=== PATIENT | male | born 1990 | race Caucasian/White ===

== ENCOUNTER 2024-05-07 15:28 | Inpatient (IN) | payer BC, MEDICAID, SELFPAY ==
[2024-05-07 15:55] VITALS: BP 121/80; PULSE 84; RESP 16; TEMP 37.1; O2SAT 97
[2024-05-07] MEDS: hyDROXYzine 25 mg Capsule 50 MG PO (16:11)
[2024-05-07] MEDS: nicotine 21 mg Patch 1 PATCH TRANSDERMA (16:11)
[2024-05-07 16:17] VITALS: BMI 32.6
[2024-05-07 20:42] VITALS: BP 96/58; PULSE 88; RESP 18; TEMP 36.7; O2SAT 96
[2024-05-07] MEDS: trazodone 50 mg Tablet PO (21:52)
[2024-05-07] MEDS: prazosin 1 mg Capsule 2 MG PO (21:52)
[2024-05-08 06:00] VITALS: BP 106/70; PULSE 78; RESP 16; TEMP 36.5; O2SAT 97
[2024-05-08] MEDS: fluoxetine 20 mg Capsule 40 MG PO (08:05)
[2024-05-08] MEDS: hyDROXYzine 25 mg Capsule 50 MG PO ×2 (08:25→21:44)
--- NOTE | 2024-05-08 09:47 | PC.NURSE ---
PT DENIES SI/HI AND AVH AT THIS TIME. STATES HE HAD DIFFICULTY GOING TO SLEEP LAST NIGHT. PT DENIES PAIN. RATES ANXIETY 8/10 VISTARIL 50 MG GIVEN FOR INCREASED ANXIETY. PT RATES DEPRESSION 8/10. PT IS COOPERATIVE. ALL QUESTIONS ASWERED AND SUPPORT VOICED.
[2024-05-08] MEDS: nicotine 21 mg Patch 1 PATCH TRANSDERMA (12:08)
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
[2024-05-08 14:00] VITALS: BP 113/79; PULSE 102; RESP 18; TEMP 36.4; O2SAT 95
--- NOTE | 2024-05-08 17:59 | PC.NURSE ---
PT RECEIVED VISTARIL 50 MG THIS AM FOR REPORTS OF INCREASED ANXIETY. MEDICATION DEEMED EFFECTIVE. PT HAS RESTED THROUGHOUT THE SHIFT AND HAS HAD NO OTHER COMPLAINTS OF PAIN. SUPPORT VOICED.
[2024-05-08 21:08] VITALS: BP 117/69; PULSE 93; RESP 18; TEMP 36.9; O2SAT 96
[2024-05-08] MEDS: prazosin 1 mg Capsule 2 MG PO (21:44)
[2024-05-09] MEDS: trazodone 50 mg Tablet PO ×2 (00:18→21:01)
[2024-05-09] MEDS: ibuprofen 600 mg Tablet PO ×2 (00:19→21:01)
[2024-05-09 06:00] VITALS: BP 95/55; PULSE 88; RESP 16; O2SAT 96
[2024-05-09] MEDS: nicotine 21 mg Patch 1 PATCH TRANSDERMA (08:41)
[2024-05-09] MEDS: fluoxetine 20 mg Capsule 40 MG PO (08:41)
[2024-05-09 14:00] VITALS: BP 123/79; PULSE 101; RESP 17; TEMP 36.6; O2SAT 96
--- NOTE | 2024-05-09 16:22 | P.NPUPN_ITS ---
Subjective NPU Subjective: 34-year-old male history of severe depression along with a history of methamphetamine dependence and alcohol dependence currently in remission. Patient had endorsed recent homelessness. He had reported continuing to struggle with depression. He had reported low energy and low motivation. He had stated that he was continuing to think about an extended inpatient substance abuse facility as he stated that being homeless had put him at substantial risk of relapsing off of alcohol and methamphetamine. He had reported sadness at the potential of not being able to have his children return to his home as department of family services had removed children from home due to the patient's substance abuse approximately 1 year ago. He had reported frequent nightmares and flashbacks. He had reported considerable problems with managing anxiety and worry. He had reported that he had been taking Prozac for weeks with no improvement noted at 40mg daily on an outpatient basis. Mental Status Exam MSE Comments: Patient is a casually dressed white male slightly overweight who was alert and oriented to person place time and situation. His gait was within normal limits. His hygiene was improved. There was no evidence of any abnormal involuntary motor movements tics or tremors appreciated. His speech was normal in regards to rate rhythm and prosody. There was evidence of mild psychomotor retardation. His mood was described as depressed. His affect was flat and restricted in range. His thought process was linear logical and goal-directed. His thought content showed evidence of suicidal ideation with a plan to shoot himself with a shotgun. He denied any homicidal ideation. He did not appear to be responding internal stimuli. There was no evidence of delusional thinking. His recent and remote memory are grossly intact. His insight was partial. His judgment was poor. His impulse control appeared poor. Vitals/I&O/Wt Last Vital Signs Temp 97.8 F 05/09/24 14:00 Pulse 101 H 05/09/24 14:00 Resp 17 05/09/24 14:00 BP 123/79 05/09/24 14:00 Pulse Ox 96 05/09/24 14:00 O2 Del Method Room Air 05/09/24 06:00 A&P Assessment and plan (1) Major depressive disorder, recurrent: (2) PTSD (post-traumatic stress disorder): (3) Methamphetamine abuse: (4) Alcohol dependence, in remission: Plan 34-year-old recently homeless male transferred here from [facility] who presents with depression and suicidal ideation with a plan with a history of major depressive disorder and PTSD, and polysubstance abuse. #1. ?Engage patient in individual milieu and group therapy. #2?? Recommend sober living treatment at the highest level of care to which the patient is willing to commit #3??? Prozac 60mg daily, continue prazosin at 2mg at night to target PTSD related nightmares. #4?? TO-15 minute checks? #5?? Will attempt to gather collateral information Involuntary Hold Information 96 Hour Hold: 96 Hour Involuntary Admission: No Attestations NPU Medical Necessity Statement*: Inpatient hospitalization is medically necessary and deemed to ?be ?the clinically appropriate intervention ?at this time.? We will monitor/initiate medications and make changes as indicated.? The patient?s likely length of stay 4-6 days. Coding Level of Care Code Acute Code for g Fwd Diagnoses Major depressive disorder, recurrent F33.9 PTSD (post-traumatic stress disorder) F43.10 Methamphetamine abuse F15.10 Alcohol dependence, in remission F10.21
[2024-05-09] MEDS: fluoxetine 20 mg Capsule PO (17:20)
[2024-05-09] MEDS: prazosin 1 mg Capsule 2 MG PO (21:01)
[2024-05-09] MEDS: hyDROXYzine 25 mg Capsule 50 MG PO (21:01)
[2024-05-09 22:00] VITALS: BP 124/85; PULSE 101; RESP 17; TEMP 36.5; O2SAT 96
[2024-05-09] MEDS: nicotine 2 mg Gum BUCCAL (23:25)
[2024-05-10 06:00] VITALS: BP 113/68; PULSE 75; RESP 16; O2SAT 96
[2024-05-10] MEDS: fluoxetine 20 mg Capsule 60 MG PO (08:09)
--- NOTE | 2024-05-10 13:48 | W.PM.NPUPNS ---
Subjective NPU Subjective: 34-year-old male history of severe depression along with a history of methamphetamine dependence and alcohol dependence currently in remission. Patient had expressed some concern that if he were to be in a homeless situation that he would relapse on methamphetamine and alcohol. He had reported that he continued to remain depressed. He continued to endorse nightmares and flashbacks associated with previous trauma. The patient reported low energy and had reported low motivation for several weeks. He had reported fleeting thoughts of suicide. He had reported no recent counseling. He had expressed desire to consider digital therapeutic applications for treating substance use and was given information regarding affect therapeutics. Mental Status Exam MSE Comments: Patient is a casually dressed white male slightly overweight who was alert and oriented to person place time and situation. His gait was within normal limits. His hygiene was improved. There was no evidence of any abnormal involuntary motor movements tics or tremors appreciated. His speech was normal in regards to rate rhythm and prosody. There was evidence of mild psychomotor retardation. His mood remaiined depressed. His affect was flat and restricted in range. His thought process was linear logical and goal-directed. His thought content showed evidence of suicidal ideation with a plan to shoot himself with a shotgun. He denied any homicidal ideation. He did not appear to be responding internal stimuli. There was no evidence of delusional thinking. His recent and remote memory are grossly intact. His insight was fair. His judgment was poor. His impulse control appeared poor. Vitals/I&O/Wt Last Vital Signs Temp 97.7 F 05/09/24 22:00 Pulse 75 05/10/24 06:00 Resp 16 05/10/24 06:00 BP 113/68 05/10/24 06:00 Pulse Ox 96 05/10/24 06:00 O2 Del Method Room Air 05/09/24 06:00 A&P Assessment and plan (1) Major depressive disorder, recurrent: (2) PTSD (post-traumatic stress disorder): (3) Methamphetamine abuse: (4) Alcohol dependence, in remission: Plan 34-year-old recently homeless male transferred here from [facility] who presents with depression and suicidal ideation with a plan with a history of major depressive disorder and PTSD, and polysubstance abuse. #1. ?Engage patient in individual milieu and group therapy. #2?? Recommend sober living treatment at the highest level of care to which the patient is willing to commit #3??? Prozac 60mg daily, continue prazosin at 2mg at night to target PTSD related nightmares. #4?? TO-15 minute checks? #5?? Will attempt to gather collateral information Involuntary Hold Information 96 Hour Hold: 96 Hour Involuntary Admission: No Attestations NPU Medical Necessity Statement*: Inpatient hospitalization is medically necessary and deemed to ?be ?the clinically appropriate intervention ?at this time.? We will monitor/initiate medications and make changes as indicated.? The patient?s likely length of stay 4-6 days. Coding Level of Care Code Acute Code for Chg Fwd Diagnoses Major depressive disorder, recurrent F33.9 PTSD (post-traumatic stress disorder) F43.10 Methamphetamine abuse F15.10 Alcohol dependence, in remission F10.21
[2024-05-10 14:37] VITALS: BP 121/85; PULSE 90; RESP 16; TEMP 36.4; O2SAT 96
[2024-05-10] MEDS: nicotine 2 mg Gum BUCCAL ×2 (18:05→21:45)
[2024-05-10] MEDS: ibuprofen 600 mg Tablet PO (21:44)
[2024-05-10] MEDS: trazodone 50 mg Tablet PO (21:44)
[2024-05-10] MEDS: prazosin 1 mg Capsule 2 MG PO (21:45)
[2024-05-10] MEDS: hyDROXYzine 25 mg Capsule 50 MG PO (21:45)
[2024-05-10 21:59] VITALS: BP 118/79; PULSE 89; RESP 17; TEMP 36.7; O2SAT 96
[2024-05-11 06:00] VITALS: BP 103/61; PULSE 65; RESP 16; O2SAT 97
[2024-05-11] MEDS: fluoxetine 20 mg Capsule 60 MG PO (08:36)
[2024-05-11] MEDS: nicotine 21 mg Patch 1 PATCH TRANSDERMA (08:37)
--- NOTE | 2024-05-11 13:55 | W.PM.NPUPNS ---
Subjective NPU Subjective: Patient presented today reporting that he is doing okay. He reports that previously he had a significant limitation to the options for sober living treatment due to his kids but he reports that he has gotten word that he has possibly lost guardianship of his children. He reports that he is feeling even more determined to get things turned around and going to some sober living treatment he feels is the first step. We discussed exploring more/additional options for sober living treatment tomorrow. He denied any side effects of his medications. Mental Status Exam MSE Comments: This is an obese white male in hospital scrubs with limited grooming but adequate eye contact. No abnormal movements except for mild psychomotor retardation. Cooperative with exam in mild distress. Speech was slightly decreased rate and volume. Mood described as okay, affect subdued. His thought process was linear logical and goal-directed. His thought content showed diminishing evidence of suicidal ideation with a plan to shoot himself with a shotgun. He denied any homicidal ideation. He did not appear to be responding internal stimuli. There was no evidence of delusional thinking. His recent and remote memory are grossly intact. His insight was fair. His judgment was poor. His impulse control appeared limited. Vitals/I&O/Wt Last Vital Signs Temp 98.1 F 05/10/24 21:59 Pulse 65 05/11/24 06:00 Resp 16 05/11/24 06:00 BP 103/61 05/11/24 06:00 Pulse Ox 97 05/11/24 06:00 O2 Del Method Room Air 05/09/24 06:00 A&P Assessment and plan (1) Major depressive disorder, recurrent: (2) PTSD (post-traumatic stress disorder): (3) Methamphetamine abuse: (4) Alcohol dependence, in remission: Plan 34-year-old recently homeless male transferred here from [facility] who presents with depression and suicidal ideation with a plan with a history of major depressive disorder and PTSD, and polysubstance abuse. 1. ?Engage patient in individual milieu and group therapy. 2.?? Recommend sober living treatment at the highest level of care to which the patient is willing to commit 3.???Prozac 60mg daily, continue prazosin at 2mg at night to target PTSD related nightmares. 4.? TO-15 minute checks? 5.? Will attempt to gather collateral information. Continue to work with social work team on sober living discharge options. Involuntary Hold Information 96 Hour Hold: 96 Hour Involuntary Admission: No Attestations NPU Medical Necessity Statement*: Inpatient hospitalization is medically necessary and the clinically appropriate intervention at this time.? We will monitor/initiate medications and make changes as indicated.? The patient?s likely length of stay 4-6 days. Coding Level of Care Code Acute Code for g Fwd Diagnoses Major depressive disorder, recurrent F33.9 PTSD (post-traumatic stress disorder) F43.10 Methamphetamine abuse F15.10 Alcohol dependence, in remission F10.21
[2024-05-11 14:00] VITALS: BP 96/56; PULSE 83; RESP 20; TEMP 36.7; O2SAT 95
--- NOTE | 2024-05-11 17:27 | PC.NURSE ---
PT TOOK OF NICOTINE PATCH AT [id number]
[2024-05-11] MEDS: trazodone 50 mg Tablet PO ×2 (20:51→23:17)
[2024-05-11] MEDS: prazosin 1 mg Capsule 2 MG PO (20:51)
[2024-05-11] MEDS: ibuprofen 600 mg Tablet PO (20:52)
[2024-05-11] MEDS: nicotine 2 mg Gum BUCCAL (20:53)
[2024-05-11 21:30] VITALS: BP 113/77; PULSE 101; RESP 16; TEMP 36.7; O2SAT 96
[2024-05-12 06:00] VITALS: BP 115/70; PULSE 73; RESP 15; O2SAT 97
--- NOTE | 2024-05-12 07:40 | W.PM.NPUPNS ---
Subjective NPU Subjective: Patient presented today reporting that he is doing okay. He reported gratitude that the treatment team was able to connect him to some possible resources in [place]. He reports that since his parental rights have been lost he is capable of seeking appropriate treatment wherever it is available and good quality. He denies any side effects to his medications and reported feeling optimistic about a plan for discharge on Wednesday to . Mental Status Exam MSE Comments: This is an obese white male in hospital scrubs with limited grooming but adequate eye contact. No abnormal movements except for mild psychomotor retardation. Cooperative with exam in mild distress. Speech was slightly decreased rate and volume. Mood described as okay, affect subdued. His thought process was linear logical and goal-directed. His thought content showed diminishing evidence of suicidal ideation with a plan to shoot himself with a shotgun. He denied any homicidal ideation. He did not appear to be responding internal stimuli. There was no evidence of delusional thinking. His recent and remote memory are grossly intact. His insight was fair. His judgment was poor. His impulse control appeared limited. Vitals/I&O/Wt Last Vital Signs Temp 98.1 F 05/11/24 21:30 Pulse 73 05/12/24 06:00 Resp 15 05/12/24 06:00 BP 115/70 05/12/24 06:00 Pulse Ox 97 05/12/24 06:00 O2 Del Method Room Air 05/12/24 06:00 A&P Assessment and plan (1) Major depressive disorder, recurrent: (2) PTSD (post-traumatic stress disorder): (3) Methamphetamine abuse: (4) Alcohol dependence, in remission: Plan 34-year-old recently homeless male transferred here from [facility] who presents with depression and suicidal ideation with a plan with a history of major depressive disorder and PTSD, and polysubstance abuse. 1. ?Engage patient in individual milieu and group therapy. 2.?? Recommend sober living treatment at the highest level of care to which the patient is willing to commit 3.???Prozac 60mg daily, continue prazosin at 2mg at night to target PTSD related nightmares. 4.? TO-15 minute checks? 5.? Will attempt to gather collateral information. Continue to work with social work team on sober living discharge options. Likely discharge on Wednesday. Involuntary Hold Information 96 Hour Hold: 96 Hour Involuntary Admission: No Attestations NPU Medical Necessity Statement*: Inpatient hospitalization is medically necessary and the clinically appropriate intervention at this time.? We will monitor/initiate medications and make changes as indicated.? The patient?s likely length of stay 3 days. Coding Level of Care Code Acute Code for Chg Fwd Diagnoses Major depressive disorder, recurrent F33.9 PTSD (post-traumatic stress disorder) F43.10 Methamphetamine abuse F15.10 Alcohol dependence, in remission F10.21
[2024-05-12] MEDS: fluoxetine 20 mg Capsule 60 MG PO (08:50)
[2024-05-12] MEDS: nicotine 2 mg Gum BUCCAL ×2 (08:50→16:50)
[2024-05-12] MEDS: ibuprofen 600 mg Tablet PO ×2 (08:54→20:47)
[2024-05-12] MEDS: nicotine 4 mg lozenge MUCOUS MEM (12:32)
[2024-05-12 13:25] VITALS: BP 118/66; PULSE 101; RESP 15; TEMP 36.5; O2SAT 98
[2024-05-12 20:28] VITALS: BP 124/86; PULSE 111; RESP 18; TEMP 37; O2SAT 97
[2024-05-12] MEDS: prazosin 1 mg Capsule 2 MG PO (20:46)
[2024-05-12] MEDS: trazodone 50 mg Tablet PO ×2 (20:46→22:39)
[2024-05-13 06:00] VITALS: BP 112/67; PULSE 90; RESP 16; O2SAT 95
[2024-05-13] MEDS: fluoxetine 20 mg Capsule 60 MG PO (08:42)
[2024-05-13] MEDS: nicotine 21 mg Patch 1 PATCH TRANSDERMA (08:46)
--- NOTE | 2024-05-13 11:51 | P.NPUPN_ITS ---
Subjective NPU Subjective: Patient presented today reporting that he is doing fine. He denied any changes and reports that the medications are working fine and he continues to be optimistic about the plan to get him discharged very first thing Wednesday morning to get to [place] to access resources there. He reports a continued commitment to his recovery and he denies any side effects to medications. Mental Status Exam MSE Comments: This is an obese white male in hospital scrubs with limited grooming but adequate eye contact. No abnormal movements except for mild psychomotor retardation. Cooperative with exam in mild distress. Speech was slightly decreased rate and volume. Mood described as okay, affect subdued. His thought process was linear logical and goal-directed. His thought content showed dimi nishing evidence of suicidal ideation with a plan to shoot himself with a shotgun. He denied any homicidal ideation. He did not appear to be responding internal stimuli. There was no evidence of delusional thinking. His recent and remote memory are grossly intact. His insight was fair. His judgment was poor. His impulse control appeared limited. Vitals/I&O/Wt Last Vital Signs Temp 98.6 F 05/12/24 20:28 Pulse 90 05/13/24 06:00 Resp 16 05/13/24 06:00 BP 112/67 05/13/24 06:00 Pulse Ox 95 05/13/24 06:00 O2 Del Method Room Air 05/13/24 06:00 A&P Assessment and plan (1) Major depressive disorder, recurrent: (2) PTSD (post-traumatic stress disorder): (3) Methamphetamine abuse: (4) Alcohol dependence, in remission: Plan 34-year-old recently homeless male transferred here from [facility] who presents with depression and suicidal ideation with a plan with a history of major depressive disorder and PTSD, and polysubstance abuse. 1. ?Engage patient in individual milieu and group therapy. 2.?? Recommend sober living treatment at the highest level of care to which the patient is willing to commit 3.???Prozac 60mg daily, continue prazosin at 2mg at night to target PTSD related nightmares. 4.? TO-15 minute checks? 5.? Will attempt to gather collateral information. Continue to work with social work team on sober living discharge options. Likely discharge on Wednesday. Involuntary Hold Information 96 Hour Hold: 96 Hour Involuntary Admission: No Attestations NPU Medical Necessity Statement*: Inpatient hospitalization is medically necessary and the clinically appropriate intervention at this time.? We will monitor/initiate medications and make changes as indicated.? The patient?s likely length of stay 2 days. Coding Level of Care Code Acute Code for Chg Fwd Diagnoses Major depressive disorder, recurrent F33.9 PTSD (post-traumatic stress disorder) F43.10 Methamphetamine abuse F15.10 Alcohol dependence, in remission F10.21
[2024-05-13 14:00] VITALS: BP 105/73; PULSE 103; RESP 16; TEMP 36.9; O2SAT 98
[2024-05-13] MEDS: ibuprofen 600 mg Tablet PO (14:19)
[2024-05-13] MEDS: nicotine 2 mg Gum BUCCAL (17:09)
[2024-05-13 19:39] VITALS: BP 118/80; PULSE 97; RESP 18; TEMP 36.9; O2SAT 96
[2024-05-13] MEDS: trazodone 50 mg Tablet PO ×2 (20:15→21:32)
[2024-05-13] MEDS: prazosin 1 mg Capsule 2 MG PO (20:15)
[2024-05-14 06:00] VITALS: BP 101/66; PULSE 88; RESP 17; O2SAT 99
[2024-05-14] MEDS: nicotine 21 mg Patch 1 PATCH TRANSDERMA (07:52)
[2024-05-14] MEDS: fluoxetine 20 mg Capsule 60 MG PO (07:52)
--- NOTE | 2024-05-14 12:41 | P.NPUPN_ITS ---
Subjective NPU Subjective: Patient presented today reporting that he is feeling ready to move forward. We discussed that we already have his medications from the pharmacy and his ride is arranged. He reports appreciation for the efforts of the treatment team and optimism about moving forward with his sobriety and treatment. He denies any side effects of the medications. Mental Status Exam MSE Comments: This is an obese white male in hospital scrubs with limited grooming but adequate eye contact. No abnormal movements except for mild psychomotor retardation. Cooperative with exam in mild distress. Speech was slightly decreased rate and volume. Mood described as okay, affect subdued. His thought process was linear logical and goal-directed. His thought content showed diminishing evidence of suicidal ideation with a plan to shoot himself with a shotgun. He denied any homicidal ideation. He did not appear to be responding internal stimuli. There was no evidence of delusional thinking. His recent and remote memory are grossly intact. His insight was fair. His judgment was poor. His impulse control appeared limited. Vitals/I&O/Wt Last Vital Signs Temp 98.5 F 05/13/24 19:39 Pulse 88 05/14/24 06:00 Resp 17 05/14/24 06:00 BP 101/66 05/14/24 06:00 Pulse Ox 99 05/14/24 06:00 O2 Del Method Room Air 05/13/24 14:00 Weight last 48 hrs Weight 97.795 kg A&P Assessment and plan (1) Major depressive disorder, recurrent: (2) PTSD (post-traumatic stress disorder): (3) Methamphetamine abuse: (4) Alcohol dependence, in remission: Plan 34-year-old recently homeless male transferred here from [facility] who presents with depression and suicidal ideation with a plan with a history of major depressive disorder and PTSD, and polysubstance abuse. 1. ?Engage patient in individual milieu and group therapy. 2.?? Recommend sober living treatment at the highest level of care to which the patient is willing to commit 3.???Prozac 60mg daily, continue prazosin at 2mg at night to target PTSD related nightmares. 4.? TO-15 minute checks? 5.? Will attempt to gather collateral information. Continue to work with social work team on sober living discharge options. Discharge tomorrow early. Ride already arranged. Involuntary Hold Information 96 Hour Hold: 96 Hour Involuntary Admission: No Attestations NPU Medical Necessity Statement*: Inpatient hospitalization is medically necessary and the clinically appropriate intervention at this time.? We will monitor/initiate medications and make changes as indicated.? The patient?s likely length of stay 1 days. Coding Level of Care Code Acute Code for Chg Fwd Diagnoses Major depressive disorder, recurrent F33.9 PTSD (post-traumatic stress disorder) F43.10 Methamphetamine abuse F15.10 Alcohol dependence, in remission F10.21
[2024-05-14 14:00] VITALS: BP 143/88; PULSE 99; RESP 16; TEMP 36.4; O2SAT 95
--- NOTE | 2024-05-14 16:30 | PC.NURSE ---
Spoke with MTM about patient needing to be at his destination by noon and they stated the ETA of his ride was [id number].
[2024-05-14 19:58] VITALS: BP 130/77; PULSE 100; RESP 18; TEMP 36.5; O2SAT 97
[2024-05-14] MEDS: prazosin 1 mg Capsule 2 MG PO (20:21)
[2024-05-14] MEDS: ibuprofen 600 mg Tablet PO (20:23)
[2024-05-14] MEDS: trazodone 50 mg Tablet PO (20:23)
--- NOTE | 2024-05-15 05:02 | W.PM.NPUDCS ---
Diagnoses at Discharge Discharge Diagnosis (1) Major depressive disorder, recurrent: Status: Acute (2) PTSD (post-traumatic stress disorder): Status: Acute (3) Methamphetamine abuse: Status: Acute (4) Alcohol dependence, in remission: Status: Acute Reason for Visit Reason for Visit: SI Involuntary Hold Information 96 Hour Hold: 96 Hour Involuntary Admission: No Mental Status Exam MSE Comments: This is an obese white male in hospital scrubs with limited grooming but adequate eye contact. No abnormal movements except for mild psychomotor retardation. Cooperative with exam in mild distress. Speech was slightly decreased rate and volume. Mood described as okay, affect subdued. His thought process was linear logical and goal-directed. His thought content showed diminishing evidence of suicidal ideation with a plan to shoot himself with a shotgun. He denied any homicidal ideation. He did not appear to be responding internal stimuli. There was no evidence of delusional thinking. His recent and remote memory are grossly intact. His insight was fair. His judgment was poor. His impulse control appeared limited. Discharge Data Vitals: Last Vital Signs Temp 97.7 F 05/14/24 19:58 Pulse 100 05/14/24 19:58 Resp 18 05/14/24 19:58 BP 130/77 05/14/24 19:58 Pulse Ox 97 05/14/24 19:58 O2 Del Method Room Air 05/14/24 14:00 Discharge Plan Discharge Patient Disposition: Home Condition: Stable Prescriptions: New trazodone 50 mg Tablet 50 mg PO BEDTIME PRN (Reason: Sleep) 30 Days Qty: 30 1RF fluoxetine 20 mg Capsule 60 mg PO DAILY 30 Days Qty: 90 1RF Continued prazosin 2 mg Capsule 2 mg PO BEDTIME 30 Days Qty: 30 1RF Discontinued fluoxetine 40 mg Capsule 40 mg PO DAILY Discharge Orders: Discharge Order (Routine); Ordered 05/15/24 Ordered By: Armond Torres Referrals: [facility]av[facility] [Other] [facility] [Other] - 05/29/24 1:00 pm (Initial assessment for services with [facility] and arrive 30 minutes early to complete paperwork. This is a two hour appointment.) Shannan Kemp [Other] - 06/20/24 2:00 pm (Psych evaluation) [facility] [Other] - 05/15/24 10:00 am Discharge Diet: Regular Discharge Activity: Resume usual activity Patient Instructions: Opioid Safety Discharge Attestations NPU Time Spent in Discharge Care*: less than 30 min Specific Discharge Activities: Specific discharge activities: educating patient, discussing with [employer]/social workers/dc planners, documenting/other paperwork and evaluating patient/reviewing data Coding Level of Care Code Acute Code for Chg Fwd Diagnoses Major depressive disorder, recurrent F33.9 PTSD (post-traumatic stress disorder) F43.10 Methamphetamine abuse F15.10 Alcohol dependence, in remission F10.21
[2024-05-15 06:00] VITALS: BP 120/74; PULSE 82; RESP 17; O2SAT 97
[2024-05-15 07:09] VITALS: BP 120/74; PULSE 82; RESP 17; O2SAT 97
[2024-05-15] MEDS: fluoxetine 20 mg Capsule 60 MG PO (07:34)
== END 2024-05-15 10:13 | disposition home or self-care (01) | DRG 885 ==
PROVIDERS: Admitting Provider Psychiatry & Neurology Psychiatry; Visit Provider Psychiatry & Neurology Psychiatry
DX: F33.9 Major depressive disorder, recurrent, unspecified (principal); Z59.01 Sheltered homelessness; R45.851 Suicidal ideations; F43.10 Post-traumatic stress disorder, unspecified; F15.10 Other stimulant abuse, uncomplicated; F10.21 Alcohol dependence, in remission; Z81.8 Family history of other mental and behavioral disorders; Z81.3 Family history of other psychoactive substance abuse and dependence; Z62.812 Personal history of neglect in childhood; Z62.810 Personal history of physical and sexual abuse in childhood; Z62.811 Personal history of psychological abuse in childhood
CPT/HCPCS: 97150; 97165